=== PATIENT | male | born 1960 | race Caucasian/White ===

== ENCOUNTER 2024-08-06 07:35 | Day surgery (SDC) | payer OTHER, SELFPAY ==
[2024-08-06 08:01] VITALS: BP 118/75; PULSE 72; TEMP 35.7; O2SAT 98
[2024-08-06] MEDS: LIDOCAINE 2% JELLY 10 ML UR (08:53)
[2024-08-06 09:00] VITALS: BP 117/72; PULSE 72; O2SAT 100
--- NOTE | 2024-08-06 09:03 | PM.URSON ---
Urology Surgery Operative Note Operative Note Procedure Date: 08/06/24 Time Out Performed: yes Pre-op Diagnosis: BPH with LUTS Post-op Diagnosis: same as pre-op Procedures performed: 1. Cystoscopy. Anesthesia: local Primary Surgeon: Bijan Nelson Complications: None Estimated blood loss (mL): 0 Findings: 1. Long obstructing lateral lobes. 2. Moderate trabeculation. 3. No bladder tumors Specimens: None Drains: None Indications for Procedures: This gentleman has BPH with LUTS and moderately high postvoid residuals. His PSA is 2.3. He has been started on Flomax. He now presents for cystoscopy. He has signed an informed consent after risks were explained. Detailed description of Procedure: Patient was kept on the gurney bed and brought into the endoscopy suite. He was in the supine position. Timeout was done by all parties in the room. 2% lidocaine gel was passed per urethra after the genitalia were sterilely prepped and draped in the usual fashion. A flexible cystoscope was passed per urethra and into the bladder. The anterior urethra was normal. The prostatic urethra showed bilobar obstruction of the prostate. The lateral lobes were long. Careful panendoscopy in the bladder showed no evidence of any tumors stones or foreign bodies. The scope was retroverted upon itself and no new findings were noted. Some of the prostate did protrude into the bladder. The scope was then removed. He was then discharged to home. The plan is that he will continue Flomax. Follow-up will be in 3 months with a bladder scan postvoid residual.
[2024-08-06 09:07] VITALS: BP 112/74; PULSE 74; O2SAT 100
== END 2024-08-06 09:10 | disposition home or self-care (01) ==
PROVIDERS: PCP Internal Medicine; Visit Provider Urology
PROC: (CPT 52000; principal; 2024-08-06 08:30)
DX: N40.1 Benign prostatic hyperplasia with lower urinary tract symptoms (principal); R31.9 Hematuria, unspecified; E11.9 Type 2 diabetes mellitus without complications; I25.10 Atherosclerotic heart disease of native coronary artery without angina pectoris; M10.9 Gout, unspecified; I10 Essential (primary) hypertension; E78.5 Hyperlipidemia, unspecified; K21.9 Gastro-esophageal reflux disease without esophagitis; N32.89 Other specified disorders of bladder; G47.30 Sleep apnea, unspecified; Z79.85 Long-term (current) use of injectable non-insulin antidiabetic drugs; F17.290 Nicotine dependence, other tobacco product, uncomplicated; R33.8 Other retention of urine
CPT/HCPCS: 52000